=== PATIENT | male | born 1955 | race Caucasian/White ===

== ENCOUNTER 2021-09-10 06:00 | Observation (INO) ==
--- NOTE | 2021-08-27 09:54 | Anesthesiology Consultation ---
Date of Service August 27, 2021 Assessment & Plan (1) Encounter for pre-operative examination: Patient states does not want "ANY Versed or medication that is in same class" due to concern for potential memory impact and his career, expresses is okay receiving other standard medication for anesthesia. Case discussed with Dr. Macedo who advised can undergo procedure without Versed or other benzodiazepines. Pt notified and verbalized understanding, denied additional questions or concerns. He states plans to also discuss with anesthesiologist haylee RODAS. - Difficult airway: Per pt, relayed to him at [place] in 2007. No formal letter or available records. - COVID screening: Per assessment on 08/27/2021: Travel screen negative, no known COVID-19 positive contacts or current COVID-19 related symptoms. Patient vaccinated. Surgeon arranging preop COVID testing, scheduled 09/04/2021. Awaiting results. Chart Review Chart Review: Acceptable Risk for Surgery and Patient seen in Pre Admission Testing Teaching & Discussion Pre-Anesthesia Teaching/Discussion Notes: Instructed NPO after midnight before surgery, except medications with 15 cc of water. Medication instructions provided according to the PAT guidelines. History Surgery Operation Date: 09/08/21 09:50 Proposed Procedures p Laparoscopic Robotic Assisted Radical Retropubic Prostatectomy, Possible Open, Possible Pelvic Lymph Node Dissection, Possible Suprapubic Tube Placement - Shaggy De Anda MD Height/Weight Height: 5 ft 8 in Weight: 93.5 kg Allergies Allergy/AdvReac Type Severity Reaction Status Date / Time No Known Allergies Allergy Verified 08/19/21 13:21 Medications Home Medications Medication Instructions Recorded Confirmed Last Taken No Known Home Medications 07/30/21 08/19/21 Unknown Past Medical History Medical History (Updated 08/27/21 @ 10:01 by Emerita Pereira PA-C) Difficult airway for intubation 2007 at [facility]. no letter per patient. was told "difficult to intubate due to the structure of his throat" Elevated PSA History of skin cancer left forearm, precancerous lesion, 2019 Hyperlipemia Not medicated by pt decision Hypertension Not medicated by pt decision Patient denies h/o stroke, seizures, heart attack, heart failure, DM, blood clots or blood transfusions. Exercise / Class Metabolic Activity II 4-5 Yardwork/Stairs/Walk up hill (denies CP or SOB with 1 FOS) Past Family History Family History Grandmother (Maternal) , Passed age 57 of Breast Cancer No problems noted. Mother , Passed age 93 of natural causes Breast cancer, Onset Age: 78 Lumpectomy + Radiation Father , Passed age 93 from Dementia Complications Cardiac disease Brother Prostate cancer, Onset Age: 58 Prostatectomy - alive and well currently Brother No problems noted. Sister No problems noted. Sister No problems noted. Sister No problems noted. Son No problems noted. Daughter No problems noted. Past Surgical History Surgical History (Updated 08/27/21 @ 10:01 by Emerita Pereira PA-C) History of appendectomy (2007) History of colonoscopy no anesthesia History of prostate biopsy (06/22/21) [facility] 3+3, 3+4 Hx of local excision of skin lesion left forearm, precancerous lesion per pt, 2019 Past Anesthesia History Difficult Airway and No Family Hx of Anesthesia Complications History of PONV No Hx of PONV and Hx of Motion Sickness Social History Smoking Status: Never smoker Do You Dip or Chew Tobacco: No Hx Alcohol Use: Yes Alcohol type: beer and wine alcohol intake frequency: other (several oz once weekly) Hx Substance Use: No substance use type: does not use Review of Systems Occasional snoring, denies witnessed apneas. Reports intermittent episodes of hypoxemia on nocturnal oximeter study > 20 yrs ago conducted informally. Denies formal or additional testing, diagnosis or any intervention. Rare reflux. Intermittent sinus congestion and productive cough of clear mucus with temperature variations during heating home with wood. Chronic, denies change or worsening. Patient denies chest pain, shortness of breath, dyspnea on exertion, fever, chills, wheezing, or palpitations. Physical Exam Vital Signs Vitals BP 138/85 P 68 TEMP 98.2 SP02 98% on RA RESP 16 Physical Full cervical extension range of motion without pain TMD 3.5 finger breaths Mallampati Score 2 Dentition: intact, two crowns (30 and 31); denies loose, missing, chipped teeth, implants or bridges Lungs: normal respiratory effort. Clear throughout to auscultation, no adventitious breath sounds Cardiac: regular rate and rhythm, no murmurs noted Carotid arteries: negative bruit bilat Extremities: no distal extremity edema Lab Results Anesthesia Preop Results Results Anesthesia Widget: WBC 6.40 K/uL (4.8-10.8) 08/27/21 Hgb 14.9 g/dL (14.0-18.0) 08/27/21 Hct 42.2 % (42-52) 08/27/21 Plt 256 K/uL (130-400) 08/27/21 Na 138 mmol/L (136-145) 08/27/21 K 4.0 mmol/L (3.5-5.1) 08/27/21 Cl 105 mmol/L (98-107) 08/27/21 CO2 29 mmol/L (21-32) 08/27/21 BUN 18 mg/dl (7-18) 08/27/21 Creat 0.99 mg/dl (0.6-1.4) 08/27/21 Glucose Level 102 mg/dl (70-99) H 08/27/21 Urine Color Yellow 08/27/21 Urine Appearance Clear (Clear) 08/27/21 Urine pH 5.5 (4.5-7.5) 08/27/21 Urine Specific [place] 1.017 (1.000-1.030) 08/27/21 Urine Protein Negative (Negative) 08/27/21 Urine Glucose (UA) Negative (Negative) 08/27/21 Urine Ketones Negative (Negative) 08/27/21 Urine Blood Trace (Negative) H 08/27/21 Urine Nitrite Negative (Negative) 08/27/21 Urine Bilirubin Negative (Negative) 08/27/21 Urine Urobilinogen Negative (Negative) 08/27/21 Urine Leukocyte Esterase Negative (Negative) 08/27/21 Urine WBC (Auto) 1-5 /hpf (0-5) 08/27/21 Urine RBC (Auto) 0-4 /hpf (0-4) 08/27/21 Urine Hyaline Casts (Auto) 0 /lpf (0-5) 08/27/21 Urine Epithelial Cells (Auto) 0-5 /lpf (0-5) 08/27/21 Urine Bacteria (Auto) Negative (Negative) 08/27/21 Blood Type A Positive 08/27/21 Antibody Screen NEGATIVE 08/27/21 Testing Electrocardiogram Date: 08/27/21 Normal sinus rhythm, rate 61 bpm. Chest X-Ray Date: 08/27/21 No acute process.
[~2021-09-10 06:00] MED LIST: HEPARIN SOD 5,000 UNIT/0.5 ML VIAL SQ SCH; LACTATED RINGER'S 1,000 ML IV SCH; LR 15ML/HR IV SCH
[2021-09-10] MEDS ORDERED: ePHEDrine sulfate 50 MG/ML AMP IV PRN (06:50)
[2021-09-10] MEDS ORDERED: fentaNYL citrate 100 MCG/2 ML VIAL IV PRN (06:50)
[2021-09-10] MEDS ORDERED: ONDANSETRON INJ 2 MG/ML 2 ML VIAL IV PRN ×2 (06:50→12:28)
[2021-09-10] MEDS ORDERED: ATROPINE SULFATE 0.1 MG/ML 10ML SYR IV PRN (06:50)
[2021-09-10] MEDS ORDERED: BELLADONNA/OPIUM SUPP 60 MG SUPP PR ONE (07:07)
[2021-09-10] MEDS ORDERED: fentaNYL citrate 100 MCG/2 ML VIAL ONE ×2 (07:07→08:07)
--- NOTE | 2021-09-10 07:22 | History & Physical Bridge Note ---
Date of Service September 10, 2021 History & Physical Bridge Note I have examined the patient, reviewed the History & Physical and in the interval since the performance of the History & Physical I have noted the following changes of clinical significance: no changes noted
[2021-09-10] MEDS ORDERED: BUPIVACAINE 0.5 % 5 MG/1 ML MPF 30ML VIAL ONE (07:28)
[2021-09-10] MEDS ORDERED: ceFAZolin 2,000 MG/15 ML IV PUSH IV ONE (07:31)
[2021-09-10] MEDS ORDERED: ceFAZolin 2000MG 2,000 MG/15 ML SYR IV ONE (08:22)
[2021-09-10] MEDS ORDERED: NEOSTIGMINE METHYLSULFATE 1 MG/ML 10ML VIAL ONE (08:39)
[2021-09-10] MEDS ORDERED: PROPOFOL IV EMULSION 10 MG/ML 20 ML VIAL IV ONE (08:39)
[2021-09-10] MEDS ORDERED: LARYING-O-JET KIT (LTA) ONE (08:39)
[2021-09-10] MEDS ORDERED: ROCURONIUM BROMIDE 10 MG/ML 5 ML VIAL IV ONE ×3 (08:39→10:15)
[2021-09-10] MEDS ORDERED: ONDANSETRON INJ 2 MG/ML 2 ML VIAL ONE (08:39)
[2021-09-10] MEDS ORDERED: LIDOCAINE 2% 2 ML VIAL/AMP(20MG/ML) INFIL ONE (08:39)
[2021-09-10] MEDS ORDERED: SUCCINYLCHOLINE 100MG/5ML SYR IV ONE (08:39)
[2021-09-10] MEDS ORDERED: GLYCOPYRROLATE 0.2 MG/ML VIAL ONE (08:39)
[2021-09-10] MEDS ORDERED: DEXAMETHASONE SOD INJ 4 MG/ML VIAL ONE (08:39)
[2021-09-10] MEDS ORDERED: PHENYLEPHRINE 100MCG/ML 5ML SYR ONE (08:40)
[2021-09-10] MEDS ORDERED: ePHEDrine sulfate 50 MG/ML SYR ONE (08:40)
[2021-09-10] MEDS ORDERED: FLOSEAL HEMOSTATIC MATRIX 10ML TOP ONE (08:41)
--- NOTE | 2021-09-10 11:20 | Operative Report ---
PG Post Operative Report Pre & Post Diagnosis Operation Date: 09/10/21 07:30 Pre-Op Diagnosis: Prostate Cancer Post-Op Diagnosis: Prostate Cancer I identified the patient and participated in the time-out.: Yes Procedure Operation Date: 09/10/21 07:30 Actual Procedures p Laparoscopic Robotic Assisted Radical Retropubic Prostatectomy, Pelvic Lymph Node Dissection with Frozen Section(Not Applicable) - Shaggy De Anda MD Surgeon Isaias De Anda MD Tannery Gummer Mariangel Duffy Estimated Blood Loss 100 Findings Consistent with Post-Op Diagnosis Specimens 1. Periprostatic fat 2. Right and left pelvic lymph nodesthis was sent for frozen analysis, no evidence of cancer in lymph nodes on the right or left 3. Prostate and seminal vesicles Description of Procedure The patient was identified in the preoperative holding area, appropriate informed consents were reviewed and completed, and he was transported to the ope rating suite. Subcutaneous heparin was administered in the pre-operative holding area. Upon arrival in the operating suite, he received appropriate antibiotics and general anesthesia. He was positioned in dorsal lithotomy, a B&O suppository was inserted after digital rectal exam, and he was prepped and draped in standard fashion. A Wing catheter was inserted in the sterile field. A Veress needle was passed per umbilicus with uniform insufflation of the abdomen to 15mmHg. He was placed in steep Trendelenburg position. A periumbilical incision was then made to accommodate a 12mm Visiport with 10mm 0degree laparoscope. Inspection of the abdomen was carried out, and there was no evidence of traumatic entry or injury secondary to the Veress needle. After confirming a clear anterior abdominal wall, ports were subsequently placed in standard robotic prostatectomy fashion without incident. To begin the robotic portion of the case, the left lateral aspect of the sigmoid was mobilized off of the left pelvic side wall to allow the pouch of Colton to be appropriately visualized. I then made an incision in the pouch of Colton, overlying the seminal vesicles. Both SVs as well as the ampullae of the vasa were entirely dissected, with the vasa transected 3cm from the prostate. The medial umbilical ligaments were then controlled with bipolar electrocautery just inferior to the umbilicus. Following cauterization, they were divided utilizing monopolar cautery. A peritoneal incision was carried from this location to the medial aspect of the internal inguinal rings bilaterally with care to avoid opening through the ring. This incision was concluded when the vas deferens was reached. Dissection of the bladder and prostate off of the posterior aspect of the pubic arch was completed allowing full visualization of the prostate. The fat overlying the prostate was removed en bloc and passed off the table as a specimen labeled "periprostatic fat". The endopelvic fascia was cleared during this portion of the procedure, and subsequently opened - first on the right and then the left. The incision through the endopelvic fascia began near the prostate-bladder junction and was carried to the apex with extreme care to preserve all lateral levator musculature as well as the periurethral musculature and sphincter complex. I additionally preserved the puboprostatic ligaments. I then controlled the DVC with a 3-0 V-lock suture in overlapping/figure of 8 fashion. The lymph node dissection was then conducted. External iliac vessels were identified on the pelvic side wall. The packet of fat and lymphatic tissue that resides just under the iliac vein was elevated and off of the vein with a split and roll technique. The packet was dissected laterally to the circumflex vein and distally to the obturator nerve which was preserved. The proximal aspect of the packet was carried towards the bifurcation of the iliac vessels. A combination of monopolar and bipolar cautery were used to assist with control. After completing the dissection on both sides, the packets were collected and passed off of the table as specimens labeled "pelvic lymph nodes". These were sent for frozen analysis -and pathology called back into the room stating they saw no evidence of prostate cancer within the nodes. My attention then returned to the prostate, with identification of the bladder neck aided by gentle traction on the Wing catheter and lateral to medial pressure at the presumed level of the bladder neck with the robotic instruments. An anterior cystotomy was made, the Wing balloon deflated and the catheter guided through the incision to allow anterior retraction. I attempted to preserve maximal bladder neck musculature as I circumferentially dissected around the bladder neck. After incision through the posterior aspect of the mucosa, the dissection was carried through detrusor muscle until the bilateral ampullae of the vasa were identified. The previously dissected vasa and SVs were brought through the incision and used to elevated the prostate anteriorly. A posterior plane behind the prostate was then developed - splitting Denonvilliers's fascia. This dissection was carried as far as possible towards the apex as well as far as possible laterally. An incision in the lateral prostatic fascia was then made bilaterally to facilitate control of the vascular pedicles and preservation of the nerve bundles. Vasculature running along the posterior/lateral aspect of the prostate was preserved as well as the tissue containing the nerves. The pedicles were then controlled with a series of Weck clips. The apical attachments of the prostate were remaining at that stage. The DVC was divided after control with bipolar cautery over the prostate. Continuous inspection from anterior and lateral views allowed me to closely follow the apical contour of the prostate and maximally preserve urethral length and tissue. The prostate was entirely freed at that point, and collected in an EndoCatch bag before being moved out of the field of vision. Hemostasis was confirmed, bilateral figure of 8 0-vicryl sutures were used to reconstruct and tighten the bladder neck, and anastomosis of the bladder and urethra was completed utilizing a double armed V-Lock stitch. A new Wing catheter was inserted and the anastomosis tested with irrigation. There was no evidence of leak. A Juanjo style stitch was placed bilaterally to functionally marsupialize the area of the lymph node dissection. The robot was undocked, the specimen extracted through expansion of the tristan- umbilical camera port. The fascia was closed with a series of 0-ethibond figure of 8 stitches. The right respiratory therapy assistant port was closed in two layers - with a figure of 8 0-Vicryl to reapproximate the fascia followed by 4-0 Monocryl to close the skin. Monocryl was used to close all other skin incisions. All wounds were dressed with Dermabond. The case was concluded and the patient taken to the PACU in stable condition. Mariangel Duffy assisted from incision to closure. I attest to the content of the Intraoperative Record and any orders documented therein. Any exceptions are noted below.
[2021-09-10 11:43] LABS: Basophils # (auto) 0.02 K/uL (0-0.2); Basophils % (auto) 0.2 %; Eosinophils # (auto) 0.03 K/uL (0-0.5); Eosinophils % (auto) 0.3 %; Hematocrit (blood only) 38.2 % (42-52); Hemoglobin 13.1 g/dL (14.0-18.0); Immature Granulocytes # (auto) 0.02 K/uL (0.00-0.02); Immature Granulocytes % (auto) 0.2 %; Lymphocytes # (auto) 1.07 K/uL (1.2-3.4); Lymphocytes % (auto) 9.1 %; Mean Corpuscular Hemoglobin 30.7 pg (25-34); Mean Corpuscular Volume 89.5 fL (80-100); Mean Platelet Volume 9.8 fL (7.4-10.4); Monocytes # (auto) 0.19 K/uL (0.11-0.59); Monocytes % (auto) 1.6 %; Neutrophils % (auto) 88.6 %; Platelet Count 219 K/uL (130-400); RDW Coefficient of Variation 12.3 % (11.5-14.5); Red Blood Count 4.27 M/uL (4.7-6.1); White Blood Count 11.73 K/uL (4.8-10.8)
[2021-09-10 11:56] LABS: Mean Corpuscular Hgb Conc 34.3 g/dL (32-36)
[2021-09-10 12:01] LABS: BUN Creatinine Ratio 16.2 (10-20); Calcium 8.8 mg/dl (8.5-10.1); Creatinine Clr Calc Pharmacy 71.3 ml/min; Est GFR (African American) 79.5 ml/min; Est GFR (Non-African American) 68.6 ml/min; Potassium 3.7 mmol/L (3.5-5.1)
--- NOTE | 2021-09-10 12:07 | Anesthesiology Progress Note ---
Date of Service September 10, 2021 Anesthesia Post Procedure Vital Signs Vital Signs: Temp Pulse Pulse Resp BP Pulse Ox 09/10/21 11:55 97.7 F 72 12 126/70 98 09/10/21 11:45 73 13 132/68 100 09/10/21 11:35 74 14 136/66 100 09/10/21 11:25 73 17 138/74 100 09/10/21 11:19 97.2 F L 92 H 19 136/78 95 09/10/21 06:20 98.1 F 67 18 145/85 H 99 Pain Intensity Abdomen: Pain Intensity: 5 Transfer of Care Handoff Completed per policy Notes Mental Status: alert / awake / arousable and participated in evaluation Patient Amnestic to Procedure: Yes Nausea / Vomiting: adequately controlled Pain: adequately controlled Airway Patency, RR, SpO2: stable & adequate BP & HR: stable & adequate Hydration State: stable & adequate Anesthetic Complications: no major complications apparent and Pt Satisfied with anesthetic care
[2021-09-10] MEDS ORDERED: MoRPHine SULFATE 4 MG/ML 1 ML CARP\\VIAL IV PRN (12:28)
[2021-09-10] MEDS ORDERED: MoRPHine SULFATE 2 MG/ML CARP IV PRN (12:28)
[2021-09-10] MEDS ORDERED: ACETAMINOPHEN 325 MG TAB PO PRN (12:28)
[2021-09-10] MEDS ORDERED: oxyCODONE HCL IR 5 MG TAB (IMMEDIATE RELEASE) PO PRN ×2 (12:28)
[2021-09-10] MEDS: LACTATED RINGER'S 1,000 ML IV SCH (16:34)
[2021-09-10] MEDS: ceFAZolin 2000MG 2,000 MG/15 ML SYR IV SCH ×2 (16:39→23:41)
[2021-09-10] MEDS: HEPARIN SOD 5,000 UNIT/0.5 ML VIAL SQ SCH (20:06)
[2021-09-11] MEDS: LACTATED RINGER'S 1,000 ML IV SCH ×2 (02:28→12:41)
--- NOTE | 2021-09-11 07:37 | Urology Progress Note ---
Date of Service September 11, 2021 Assessment & Plan (1) Prostate cancer: Plan: POD#1 s/p RARP - doing well now - ambulate - await labs - likely d/c home later this morning Admission and Anticipated Discharge Date Admission Date: September 10, 2021 Subjective Doing very well after his prostatectomy yesterday was out of bed in the chair for most of the evening no pain good uop no nausea this morning labs pending Physical Exam Physical Exam: urine clear incisions appropriate Results & Data ([facility]) Vital Signs (Past 12 Hours) Vital Signs Temp Pulse Pulse Resp BP Pulse Ox 09/11/21 07:22 36.3 C L 73 73 16 140/70 96 09/11/21 02:30 37.0 C 83 16 144/81 H 98 09/10/21 22:02 36.8 C 80 16 153/85 H 98 09/10/21 19:39 79 18 155/82 H 97 PG Care Time/CCT Total # of Minutes Spent Total Time Spent with Patient: Total time spent is greater than 50% in coordination of care (as documented) at patient's floor/unit and/or counseling patient: Coding Level of Care Code None Diagnoses Prostate cancer C61
[2021-09-11 07:41] LABS: Eosinophils # (auto) 0.01 K/uL (0-0.5); Eosinophils % (auto) 0.1 %; Hematocrit (blood only) 35.6 % (42-52); Hemoglobin 12.4 g/dL (14.0-18.0); Immature Granulocytes # (auto) 0.03 K/uL (0.00-0.02); Immature Granulocytes % (auto) 0.2 %; Lymphocytes # (auto) 1.36 K/uL (1.2-3.4); Lymphocytes % (auto) 8.9 %; Mean Corpuscular Hemoglobin 31.2 pg (25-34); Mean Corpuscular Hgb Conc 34.8 g/dL (32-36); Mean Corpuscular Volume 89.4 fL (80-100); Mean Platelet Volume 10.2 fL (7.4-10.4); Monocytes # (auto) 1.06 K/uL (0.11-0.59); Neutrophils # (auto) 12.75 K/uL (1.4-6.5); Neutrophils % (auto) 83.8 %; Platelet Count 241 K/uL (130-400); RDW Coefficient of Variation 12.2 % (11.5-14.5); RDW Standard Deviation 39.6 fL (36.4-46.3); Red Blood Count 3.98 M/uL (4.7-6.1); White Blood Count 15.21 K/uL (4.8-10.8)
[2021-09-11 08:01] LABS: BUN Creatinine Ratio 11.8 (10-20); Calcium 8.7 mg/dl (8.5-10.1); Est GFR (African American) 83.2 ml/min; Est GFR (Non-African American) 71.8 ml/min; Potassium 4.1 mmol/L (3.5-5.1)
[2021-09-11] MEDS: HEPARIN SOD 5,000 UNIT/0.5 ML VIAL SQ SCH (08:37)
--- NOTE | 2021-09-11 12:26 | Discharge Summary ---
Date of Service September 11, 2021 Admission HPI Per Admitting Provider 66yo M with prostate cancer here for Laparoscopic Robotic Assisted Radical Retropubic Prostatectomy, Pelvic Lymph Node Dissection with Frozen Section with Dr. De Anda Admission Exam Per Admitting Provider Constitutional well developed and well nourished Neck neck nontender Respiratory normal respiratory effort; no respiratory distress and does not use accessory muscles Cardiovascular Rate/Rhythm: regular rate Vessels: radial pulses present Extremities: no edema Gastrointestinal (Abdomen) Inspection/Auscultation: abdomen normal to inspection Percussion/Palpation: abdomen soft; abdomen nontender and no guarding Musculoskeletal Head/Neck/Chest: normocephalic and head atraumatic Extremities: extremities normal to inspection Skin no rashes and no lesions Trauma: no evidence of skin trauma Neurologic awake; not obtunded Speech / Cognition: normal speech Motor/Sensory: no tremor Psychiatric Orientation: alert and oriented x 3 Genitourinary no CVA tenderness Lymphatic no lymphadenopathy Principal Diagnosis Prostate cancer Discharge Exam Physical Exam: urine clear incisions appropriate Discharge Data Allergies Allergy/AdvReac Type Severity Reaction Status Date / Time No Known Allergies Allergy Verified 09/10/21 06:18 Procedures Performed Operation Date: 09/10/21 07:30 Actual Procedures p Laparoscopic Robotic Assisted Radical Retropubic Prostatectomy, Pelvic Lymph Node Dissection with Frozen Section(Not Applicable) - Shaggy De Anda MD Hospital Course (1) Prostate cancer: POD#1 s/p RARP - doing well now - ambulate - await labs - likely d/c home later this morning - Pt reassessed this morning. - Feeling well, progressing as expected. - Tolerating diet, no nausea or vomiting - Minimal pain. - Ambulating without issue. - Eager to go home. - Expected clinical course reviewed with patient, he verbalized understanding. All questions answered. - Postoperative follow-up appointments in place. - Stable for discharge today - Home with Wing catheter. Total Time Total Time Spent Total Time Spent (In Minutes): 15 Discharge Plan Discharge Items Patient Disposition: Home - Self-Care Reason For Visit: Prostate Cancer Discharge Diagnosis: Prostate Cancer Activity: Per Instructions section Lifting: No more than 25 pounds Bathing Comment: No tub baths or soaks. OK to shower. Sexual Activity: Wait until after follow-up appointment Exercise/Sports: Wait until after follow-up appointment Driving/Machine Use: Do not drive while taking prescription pain medication. Non-emergency contact: Surgeon and Urologist Call non-emergency contact if: you have any medication questions, your pain is not controlled, your pain is worsening, you have a fever, your temperature is above 101, your wound has increased redness, your wound has increased drainage and your wound pain has increased Follow-up/Referrals: Shaggy De Anda MD [Physician] - 09/30/21 3:00 pm Jossie Johnson MD [Primary Care Provider] - Urology,Nurse [FAKE FOR SCHEDULES] - 09/15/21 10:30 am Diet: Regular Addtl Attending Provider Instructions: Please take all medications as prescribed and keep all follow-ups as scheduled. Please call our office at [phone] with any questions, concerns or need to reschedule appointments for any reason. We are happy to assist you We have sent an antibiotic to your pharmacy of choice. Please begin antibiotic as prescribed the day BEFORE your scheduled voiding trial at [facility]. Please continue antibiotic every 12 hours through the day AFTER your voiding trial. Activity: We recommend having someone with you for the first few days after surgery to help care for you. For the first 2 weeks after surgery, we would like you to get up and walk around your house. However, we recommend limit physical activity that would increase your heart rate. This will allow your body to rest and heal. Take naps if you feel tired. Don't lift anything heavier than 10 pounds, mow the law or ride a bicycle until your follow-up appointment. Please avoid long car rides. Home Care: Unless directed otherwise, drink 6 to 8 glasses of water a day (enough to keep your urine light colored). This will also help keep a healthy flow of urine. We recommend using a stool softener for the first two weeks to avoid constipation. Wing Catheter or Suprapubic Catheter care: Keep the catheter well secured with either a leg back or leg strap with large bag. Empty your bag when it's about half full. You may notice some blood in the bag. This is normal after surgery and while the catheter is in place. Use mild soap (such as Dove or Dial) and water to wash the catheter and the head of your penis daily, or more frequently if needed. Return to your normal diet, we encourage good protein intake to promote healing. You may shower as normal. Please avoid tub baths or soaking until catheter removed and incisions well healed. Wearing sweat pants while you have the catheter is recommended, they will be more comfortable. Follow-up Your follow up appointments for having your catheter removed, and follow up with your physician should already be scheduled. If you have any questions regarding this, please contact our office. Your final pathology report will be discussed at your physician follow-up appointment. Call [facility] at [phone] right away if you have any of the following: Chest pain or trouble breathing (call 911 or go to the hospital) Fever of 101F or higher, uncontrolled vomiting Heavy bleeding, clots, or bright red blood from the catheter Catheter that falls out or stops draining Foul-smelling discharge from your catheter Redness, swelling, warmth, or increased pain at your incision site Drainage, pus, or bleeding from your incision Pending Studies at Discharge: Yes (Pathology) Stand-Alone Forms: My [facility], Smoking Cessation Medications and DC Order Prescriptions: New ciprofloxacin HCl 500 mg tablet 500 mg PO BID 3 Days Qty: 6 RF: 0 oxycodone-acetaminophen [Percocet] 5-325 mg tablet 1 tab PO Q8H PRN (Reason: pain) Qty: 7 RF: 0 docusate sodium [Colace] 100 mg capsule 100 mg PO BID Qty: 60 RF: 0 No Action No Known Home Medications RF: 0 Discharge Orders: Discharge Order (Routine); Ordered 09/11/21 Ordered By: Mariah Garnica/Other Patient Handouts: Emptying and Cleaning Your ..., Leg Bag Care Dc, ED Wing Catheter, Care Admission Data Admit Date/Time: 09/10/21 11:16 Attending Provider: Shaggy De Anda Admit Provider: Shaggy De Anda Primary Care Provider: Jossie Johnson Other Interventions: Discharge Summary Assessment (RN) Last Done: 09/11/21 12:00 Coding Level of Care Code D/C DAY MANAGEMENT <30 MINS Diagnoses Prostate cancer C61
== END 2021-09-11 13:18 | disposition home or self-care (01) ==
LOC: ASU 06:00 → 3E 11:16 → INTOOBSV 11:16
DX: I10 Essential (primary) hypertension; C61 Malignant neoplasm of prostate